=== PATIENT | male | born 1940 | race Caucasian/White ===

== ENCOUNTER 2016-09-29 20:29 | Emergency (ER) | payer OTHER ==
[~2016-09-29] VITALS: Ht 167.6 cm; Wt 82.1 kg
[~2016-09-29 20:29] MED LIST: FENO54TA4 PO; HYDR25TA4 PO; LOVA40TA75 PO; METF-303 PO
[2016-09-29 20:55] VITALS: BP 180/82; PULSE 57; RESP 16; TEMP 98.6; O2SAT 98
[2016-09-29 21:52] LABS: BASOPHILS % (AUTO) 0.4 % (0.0-2.0); EOSINOPHILS # (AUTO) 0.1 K/uL (0.0-0.4); EOSINOPHILS % (AUTO) 2.2 % (0.0-4.0); HEMATOCRIT 38.7 % (36-54); HEMOGLOBIN 13.5 g/dL (14.0-18.0); LYMPHOCYTES # (AUTO) 1.2 K/uL (1.0-5.5); LYMPHOCYTES % (AUTO) 22.7 % (20.5-51.5); MEAN CORPUSCULAR HEMOGLOBIN 31 pg (27-31); MEAN CORPUSCULAR HGB CONC 35 % (32-36); MEAN CORPUSCULAR VOLUME 89 fL (79.0-98.0); MONOCYTES # (AUTO) 0.3 K/uL (0.0-1.0); MONOCYTES % (AUTO) 6.2 % (1.7-9.3); NEUTROPHILS # (AUTO) 3.8 K/uL (1.8-7.7); NEUTROPHILS % (AUTO) 68.5 % (40.0-70.0); PLATELET COUNT (AUTO) 164 K/uL (130-430); RED BLOOD CELL COUNT(AUTO) 4.37 MIL/uL (4.2-6.2); RED CELL DISTRIBUTION WIDTH 13.1 % (9.0-15.0); WHITE BLOOD COUNT (AUTO) 5.4 K/uL (4.8-10.8)
[2016-09-29 21:55] LABS: ANION GAP 6 (5-15); CALCIUM 8.4 mg/dL (8.4-11.0); CHLORIDE 102 mmol/L (98-107); CREATININE 1.55 mg/dL (0.55-1.30); GLUCOSE 282 mg/dL (70-99); POTASSIUM 4.5 mmol/L (3.5-5.1); SODIUM SERUM 134 mmol/L (136-145); UREA NITROGEN, BLOOD 33 mg/dL (8-21)
[2016-09-29 21:56] LABS: PROTHROMBIN TIME 11.2 SECS (9.5-12.5)
[2016-09-29 22:00] LABS: ALANINE AMINOTRANSFERASE 24 U/L (12-78); ALBUMIN 3.5 g/dL (3.4-4.8); ASPARTATE AMINOTRANSFERASE 15 U/L (10-37); TOTAL BILIRUBIN 0.3 mg/dL (0.0-1.0); TOTAL PROTEIN, SERUM 7.2 g/dL (6.4-8.3)
[2016-09-30 00:05] VITALS: BP 168/72; PULSE 49; RESP 17; TEMP 97.8; O2SAT 99
== END 2016-09-30 00:05 | disposition home or self-care (01) ==
LOC: SED 20:29
DX: M79.642 Pain in left hand (principal); M79.1 Myalgia; I95.9 Hypotension, unspecified; E11.9 Type 2 diabetes mellitus without complications; I10 Essential (primary) hypertension; Z95.1 Presence of aortocoronary bypass graft
CPT/HCPCS: 36415; 71010; 80053; 83880; 84484; 85025; 85610-TC; 85730-TC; 93005; 99285

== ENCOUNTER 2017-01-23 23:14 | Inpatient (IN) | payer OTHER ==
[~2017-01-23] VITALS: Ht 170.2 cm; Wt 81.6 kg
[2017-01-23 23:14] VITALS: BP_SYST 171
[2017-01-23] MEDS ORDERED: MORPHINE 2 MG/ML INJ. SYRINGE IVP ONE (23:30)
[2017-01-23] MEDS ORDERED: ONDANSETRON HCL 4 MG/2 ML VIAL IVP ONE ×2 (23:30→23:45)
[2017-01-23] MEDS ORDERED: NACL 0.9% 1,000 ML IV ONE ×2 (23:45)
[2017-01-23] MEDS ORDERED: METOCLOPRAMIDE HCL 10 MG/2 ML VIAL IVP ONE (23:45)
[2017-01-23 23:54] LABS: BASOPHILS % (AUTO) 0.3 % (0.0-2.0); EOSINOPHILS # (AUTO) 0.1 K/uL (0.0-0.4); EOSINOPHILS % (AUTO) 0.9 % (0.0-4.0); HEMOGLOBIN 13.8 g/dL (14.0-18.0); LYMPHOCYTES # (AUTO) 2.3 K/uL (1.0-5.5); LYMPHOCYTES % (AUTO) 28.6 % (20.5-51.5); MEAN CORPUSCULAR HEMOGLOBIN 29 pg (27-31); MEAN CORPUSCULAR HGB CONC 33 % (32-36); MEAN CORPUSCULAR VOLUME 89 fL (79.0-98.0); MONOCYTES # (AUTO) 0.4 K/uL (0.0-1.0); MONOCYTES % (AUTO) 5.5 % (1.7-9.3); NEUTROPHILS # (AUTO) 5.4 K/uL (1.8-7.7); NEUTROPHILS % (AUTO) 64.7 % (40.0-70.0); PLATELET COUNT (AUTO) 161 K/uL (130-430); RED BLOOD CELL COUNT(AUTO) 4.71 MIL/uL (4.2-6.2); RED CELL DISTRIBUTION WIDTH 12.7 % (9.0-15.0); WHITE BLOOD COUNT (AUTO) 8.2 K/uL (4.8-10.8)
[2017-01-24] VITALS (7 sets, daily range): BP systolic 126–164
[2017-01-24 00:01] LABS: ANION GAP 8 (5-15); CALCIUM 8.4 mg/dL (8.4-11.0); CHLORIDE 105 mmol/L (98-107); GLUCOSE 260 mg/dL (70-99); POTASSIUM 3.4 mmol/L (3.5-5.1); SODIUM SERUM 138 mmol/L (136-145); UREA NITROGEN, BLOOD 23 mg/dL (8-21)
[2017-01-24 00:05] LABS: ALANINE AMINOTRANSFERASE 26 U/L (12-78); ALBUMIN 3.9 g/dL (3.4-4.8); ASPARTATE AMINOTRANSFERASE 28 U/L (10-37); LIPASE 207 U/L (73-393); TOTAL BILIRUBIN 0.4 mg/dL (0.0-1.0); TOTAL PROTEIN, SERUM 7.4 g/dL (6.4-8.3)
[2017-01-24] MEDS ORDERED: NACL 0.9% 1,500 ML IV ONE (00:45)
[2017-01-24] MEDS ORDERED: GLIP5TAB13 PO (00:59)
[2017-01-24] MEDS ORDERED: METF-510 PO (01:00)
[2017-01-24] MEDS ORDERED: LIP80 PO (01:00)
[2017-01-24] MEDS ORDERED: SILD20TA2 PO (01:02)
[2017-01-24] MEDS ORDERED: LISI-219 PO (01:03)
[2017-01-24 01:26] LABS: BILIRUBIN,URINE NEGATIVE (NEGATIVE); BLOOD, URINE 1+ (NEGATIVE); CLARITY/URINE CLEAR (CLEAR); COLOR,URINE YELLOW (YELLOW); GLUCOSE,URINE 3+ (NEGATIVE); KETONES,URINE NEGATIVE (NEGATIVE); LEUKOCYTE ESTERASE ,URINE NEGATIVE (NEGATIVE); NITRITE, URINE NEGATIVE (NEGATIVE); PH,URINE 6.5 (5.0-8.0); PROTEIN URINE 2+ (NEGATIVE)
[2017-01-24 01:36] LABS: BACTERIA,URINE FEW /HPF (None Seen); MUCUS,URINE None Seen /LPF (None Seen); WBC,URINE 0-3 /HPF (0-3)
[2017-01-24] MEDS ORDERED: cloNIDine HCL 0.1 MG TABLET PO ONE (02:15)
[2017-01-24] MEDS ORDERED: LEVOFLOXACIN 500 MG/D5W 100 ML IV ONE ×2 (02:45→03:32)
[2017-01-24] MEDS ORDERED: MORPHINE 2 MG/ML INJ. SYRINGE IVP PRN (02:45)
[2017-01-24] MEDS ORDERED: PROCHLORPERAZINE EDISYLATE 10 MG/2 ML VIAL IVP ONE (02:45)
[2017-01-24] MEDS: D5NS 1,000 ML IV SCH ×2 (03:26→16:20)
[2017-01-24] MEDS ORDERED: metroNIDAZOLE 500 mg/NS 100 ML IV ONE (03:32)
[2017-01-24] MEDS: metroNIDAZOLE 500 mg/NS 100 ML IV SCH ×3 (05:03→22:20)
[2017-01-24] MEDS: ONDANSETRON HCL 4 MG/2 ML VIAL IVP PRN ×3 (05:43→18:49)
[2017-01-24] MEDS: INSULIN REGULAR, HUMAN 100 UNITS/ML, 10 ML VIAL (novoLIN R) SUBCUT PRN ×4 (05:45→20:59)
[2017-01-24 06:17] LABS: ANION GAP 8 (5-15); CHLORIDE 104 mmol/L (98-107); CREATININE 1.04 mg/dL (0.55-1.30); GLUCOSE 264 mg/dL (70-99); POTASSIUM 3.9 mmol/L (3.5-5.1); SODIUM SERUM 137 mmol/L (136-145); UREA NITROGEN, BLOOD 18 mg/dL (8-21)
[2017-01-24 06:21] LABS: EOSINOPHILS % (AUTO) 0.2 % (0.0-4.0); HEMOGLOBIN 13.3 g/dL (14.0-18.0); LYMPHOCYTES # (AUTO) 0.5 K/uL (1.0-5.5); LYMPHOCYTES % (AUTO) 5.9 % (20.5-51.5); MEAN CORPUSCULAR HEMOGLOBIN 30 pg (27-31); MEAN CORPUSCULAR HGB CONC 33 % (32-36); MEAN CORPUSCULAR VOLUME 91 fL (79.0-98.0); MONOCYTES # (AUTO) 0.2 K/uL (0.0-1.0); MONOCYTES % (AUTO) 2.1 % (1.7-9.3); NEUTROPHILS # (AUTO) 7.1 K/uL (1.8-7.7); NEUTROPHILS % (AUTO) 91.8 % (40.0-70.0); PLATELET COUNT (AUTO) 141 K/uL (130-430); RED BLOOD CELL COUNT(AUTO) 4.39 MIL/uL (4.2-6.2); RED CELL DISTRIBUTION WIDTH 12.4 % (9.0-15.0); WHITE BLOOD COUNT (AUTO) 7.8 K/uL (4.8-10.8)
[2017-01-24] MEDS: ENOXAPARIN SODIUM 60 MG/0.6 ML SYRINGE SUBCUT SCH (09:48)
[2017-01-24] MEDS: METOPROLOL TARTRATE 25 MG TABLET PO SCH (09:48)
[2017-01-24] MEDS: ASPIRIN 81 MG TAB.CHEW PO SCH (09:48)
[2017-01-24] MEDS: PANTOPRAZOLE SODIUM 40 MG/VIAL (PROTONIX) IVP SCH (09:49)
[2017-01-24] MEDS: LEVOFLOXACIN 500 MG/D5W 100 ML IV SCH (20:51)
[2017-01-25] MEDS: LORazepam 2 MG/ML VIAL IVP PRN ×2 (00:46→08:15)
[2017-01-25] MEDS: D5NS 1,000 ML IV SCH ×3 (04:42→18:39)
[2017-01-25 04:57] VITALS: BP_SYST 157
[2017-01-25] MEDS: metroNIDAZOLE 500 mg/NS 100 ML IV SCH ×3 (05:02→22:49)
[2017-01-25] MEDS: INSULIN REGULAR, HUMAN 100 UNITS/ML, 10 ML VIAL (novoLIN R) SUBCUT PRN ×3 (06:22→21:46)
[2017-01-25] MEDS: ENOXAPARIN SODIUM 60 MG/0.6 ML SYRINGE SUBCUT SCH (08:15)
[2017-01-25] MEDS: PANTOPRAZOLE SODIUM 40 MG/VIAL (PROTONIX) IVP SCH (08:15)
[2017-01-25] MEDS: ASPIRIN 81 MG TAB.CHEW PO SCH (08:18)
[2017-01-25] MEDS: METOPROLOL TARTRATE 25 MG TABLET PO SCH (08:18)
[2017-01-25 08:22] VITALS: BP_SYST 151
[2017-01-25 11:48] VITALS: BP_SYST 140
[2017-01-25] MEDS ORDERED: BISACODYL 5 MG TABLET.DR (DULCOLAX) PO ONE (17:00)
[2017-01-25 17:50] VITALS: BP_SYST 138
[2017-01-25] MEDS ORDERED: GOLYTELY / COLYTE SOLUTION 4 LITERS PO ONE (18:00)
[2017-01-25 20:00] VITALS: BP_SYST 148
[2017-01-25] MEDS: LEVOFLOXACIN 500 MG/D5W 100 ML IV SCH (21:44)
[2017-01-26 00:36] VITALS: BP_SYST 156
[2017-01-26 04:47] VITALS: BP_SYST 177
[2017-01-26] MEDS: D5NS 1,000 ML IV SCH (06:11)
[2017-01-26] MEDS: metroNIDAZOLE 500 mg/NS 100 ML IV SCH ×3 (06:11→22:20)
[2017-01-26 06:26] LABS: INR 1.1 (0.80-1.20); PROTHROMBIN TIME 11.9 SECS (9.5-12.5)
[2017-01-26] MEDS: INSULIN REGULAR, HUMAN 100 UNITS/ML, 10 ML VIAL (novoLIN R) SUBCUT PRN ×3 (06:42→22:18)
[2017-01-26 07:59] VITALS: BP_SYST 167
[2017-01-26] MEDS ORDERED: amLODIPine BESYLATE 5 MG TABLET PO ONE (08:00)
[2017-01-26] MEDS: ASPIRIN 81 MG TAB.CHEW PO SCH (09:00)
[2017-01-26] MEDS: ENOXAPARIN SODIUM 60 MG/0.6 ML SYRINGE SUBCUT SCH (09:36)
[2017-01-26] MEDS: METOPROLOL TARTRATE 25 MG TABLET PO SCH (09:38)
[2017-01-26] MEDS: PANTOPRAZOLE SODIUM 40 MG/VIAL (PROTONIX) IVP SCH (09:38)
[2017-01-26 11:57] VITALS: BP_SYST 147
[2017-01-26] MEDS ORDERED: MEPERIDINE HCL/PF 50 MG/ML AMP ONE (16:26)
[2017-01-26] MEDS ORDERED: MIDAZOLAM HCL 5 MG/5 ML VIAL ONE (16:26)
[2017-01-26] MEDS ORDERED: fentaNYL CITRATE/PF 100 MCG/2 ML AMP ONE (16:43)
[2017-01-26 18:00] VITALS: BP_SYST 124
[2017-01-26 20:00] VITALS: BP_SYST 148
[2017-01-26] MEDS: LEVOFLOXACIN 500 MG/D5W 100 ML IV SCH (22:12)
[2017-01-27] VITALS (12 sets, daily range): BP systolic 139–174
[2017-01-27] MEDS: metroNIDAZOLE 500 mg/NS 100 ML IV SCH ×3 (06:07→22:23)
[2017-01-27] MEDS: cloNIDine HCL 0.1 MG TABLET PO PRN ×2 (06:08→18:48)
[2017-01-27] MEDS: INSULIN REGULAR, HUMAN 100 UNITS/ML, 10 ML VIAL (novoLIN R) SUBCUT PRN ×3 (06:15→18:51)
[2017-01-27] MEDS: ENOXAPARIN SODIUM 60 MG/0.6 ML SYRINGE SUBCUT SCH (10:12)
[2017-01-27] MEDS: PANTOPRAZOLE SODIUM 40 MG/VIAL (PROTONIX) IVP SCH (10:12)
[2017-01-27] MEDS: METOPROLOL TARTRATE 25 MG TABLET PO SCH (10:13)
[2017-01-27] MEDS: ASPIRIN 81 MG TAB.CHEW PO SCH (10:13)
[2017-01-27] MEDS: D5NS 1,000 ML IV SCH ×2 (10:21→17:30)
[2017-01-27] MEDS: LEVOFLOXACIN 500 MG/D5W 100 ML IV SCH (22:23)
[2017-01-28] VITALS (24 sets, daily range): BP systolic 128–178
[2017-01-28] MEDS: cloNIDine HCL 0.1 MG TABLET PO PRN ×2 (05:07→17:28)
[2017-01-28] MEDS: metroNIDAZOLE 500 mg/NS 100 ML IV SCH ×3 (06:13→22:55)
[2017-01-28] MEDS: PANTOPRAZOLE SODIUM 40 MG/VIAL (PROTONIX) IVP SCH (11:48)
[2017-01-28] MEDS: INSULIN REGULAR, HUMAN 100 UNITS/ML, 10 ML VIAL (novoLIN R) SUBCUT PRN ×3 (12:03→21:34)
[2017-01-28] MEDS: D5NS 1,000 ML IV SCH (15:44)
[2017-01-28] MEDS ORDERED: cloNIDine HCL 0.1 MG TABLET PO SCH (21:00)
[2017-01-28] MEDS ORDERED: METOPROLOL TARTRATE 25 MG TABLET PO SCH (21:00)
[2017-01-28] MEDS: LEVOFLOXACIN 500 MG/D5W 100 ML IV SCH (21:29)
[2017-01-29] VITALS (16 sets, daily range): BP systolic 135–177
[2017-01-29] MEDS: cloNIDine HCL 0.1 MG TABLET PO PRN (04:03)
[2017-01-29] MEDS: metroNIDAZOLE 500 mg/NS 100 ML IV SCH ×3 (06:09→21:02)
[2017-01-29] MEDS: INSULIN REGULAR, HUMAN 100 UNITS/ML, 10 ML VIAL (novoLIN R) SUBCUT PRN ×3 (06:18→20:58)
[2017-01-29 06:29] LABS: BASOPHILS % (AUTO) 0.3 % (0.0-2.0); EOSINOPHILS # (AUTO) 0.1 K/uL (0.0-0.4); HEMATOCRIT 39.2 % (36-54); HEMOGLOBIN 13.1 g/dL (14.0-18.0); LYMPHOCYTES # (AUTO) 0.9 K/uL (1.0-5.5); LYMPHOCYTES % (AUTO) 21.5 % (20.5-51.5); MEAN CORPUSCULAR HEMOGLOBIN 31 pg (27-31); MEAN CORPUSCULAR HGB CONC 34 % (32-36); MEAN CORPUSCULAR VOLUME 92 fL (79.0-98.0); MONOCYTES # (AUTO) 0.4 K/uL (0.0-1.0); MONOCYTES % (AUTO) 10.1 % (1.7-9.3); NEUTROPHILS # (AUTO) 2.8 K/uL (1.8-7.7); NEUTROPHILS % (AUTO) 65.1 % (40.0-70.0); PLATELET COUNT (AUTO) 144 K/uL (130-430); RED BLOOD CELL COUNT(AUTO) 4.28 MIL/uL (4.2-6.2); RED CELL DISTRIBUTION WIDTH 12.4 % (9.0-15.0); WHITE BLOOD COUNT (AUTO) 4.2 K/uL (4.8-10.8)
[2017-01-29 08:32] LABS: ALANINE AMINOTRANSFERASE 40 U/L (12-78); ALBUMIN 2.4 g/dL (3.4-4.8); ANION GAP 5 (5-15); ASPARTATE AMINOTRANSFERASE 39 U/L (10-37); CALCIUM 8.1 mg/dL (8.4-11.0); CHLORIDE 105 mmol/L (98-107); CREATININE 1.19 mg/dL (0.55-1.30); GLUCOSE 200 mg/dL (70-99); SODIUM SERUM 138 mmol/L (136-145); TOTAL BILIRUBIN 0.4 mg/dL (0.0-1.0); TOTAL PROTEIN, SERUM 5.5 g/dL (6.4-8.3); UREA NITROGEN, BLOOD 20 mg/dL (8-21)
[2017-01-29] MEDS ORDERED: LISINOPRIL 20 MG TABLET PO ONE (09:30)
[2017-01-29] MEDS: PANTOPRAZOLE SODIUM 40 MG/VIAL (PROTONIX) IVP SCH (09:51)
[2017-01-29] MEDS ORDERED: HYDROCHLOROTHIAZIDE 12.5 MG CAPSULE (HCTZ) PO ONE (11:15)
[2017-01-29] MEDS: D5NS 1,000 ML IV SCH (14:13)
[2017-01-29] MEDS: LEVOFLOXACIN 500 MG/D5W 100 ML IV SCH (20:02)
[2017-01-29] MEDS: hydrALAZINE HCL 20 MG/ML VIAL IVP PRN (21:00)
[2017-01-30] VITALS (9 sets, daily range): BP systolic 105–170
[2017-01-30] MEDS ORDERED: POTASSIUM CHLORIDE 20 MEQ TAB.PRT.SR PO ONE ×2 (00:30→23:30)
[2017-01-30] MEDS: hydrALAZINE HCL 20 MG/ML VIAL IVP PRN (04:18)
[2017-01-30] MEDS: metroNIDAZOLE 500 mg/NS 100 ML IV SCH ×3 (05:57→21:48)
[2017-01-30] MEDS: INSULIN REGULAR, HUMAN 100 UNITS/ML, 10 ML VIAL (novoLIN R) SUBCUT PRN ×4 (06:01→20:16)
[2017-01-30 07:02] LABS: BASOPHILS % (AUTO) 0.2 % (0.0-2.0); EOSINOPHILS # (AUTO) 0.1 K/uL (0.0-0.4); EOSINOPHILS % (AUTO) 1.8 % (0.0-4.0); HEMATOCRIT 43.8 % (36-54); HEMOGLOBIN 14.7 g/dL (14.0-18.0); LYMPHOCYTES # (AUTO) 0.9 K/uL (1.0-5.5); LYMPHOCYTES % (AUTO) 17.3 % (20.5-51.5); MEAN CORPUSCULAR HEMOGLOBIN 30 pg (27-31); MEAN CORPUSCULAR HGB CONC 34 % (32-36); MEAN CORPUSCULAR VOLUME 88 fL (79.0-98.0); MONOCYTES # (AUTO) 0.4 K/uL (0.0-1.0); MONOCYTES % (AUTO) 8.3 % (1.7-9.3); NEUTROPHILS # (AUTO) 3.9 K/uL (1.8-7.7); NEUTROPHILS % (AUTO) 72.4 % (40.0-70.0); PLATELET COUNT (AUTO) 173 K/uL (130-430); RED BLOOD CELL COUNT(AUTO) 4.96 MIL/uL (4.2-6.2); RED CELL DISTRIBUTION WIDTH 12.4 % (9.0-15.0)
[2017-01-30 07:07] LABS: ALANINE AMINOTRANSFERASE 57 U/L (12-78); ALBUMIN 2.6 g/dL (3.4-4.8); ANION GAP 8 (5-15); ASPARTATE AMINOTRANSFERASE 61 U/L (10-37); CALCIUM 8.3 mg/dL (8.4-11.0); CHLORIDE 102 mmol/L (98-107); CREATININE 1.05 mg/dL (0.55-1.30); GLUCOSE 169 mg/dL (70-99); POTASSIUM 3.1 mmol/L (3.5-5.1); SODIUM SERUM 135 mmol/L (136-145); TOTAL BILIRUBIN 0.6 mg/dL (0.0-1.0); UREA NITROGEN, BLOOD 17 mg/dL (8-21)
[2017-01-30 07:20] LABS: WHITE BLOOD COUNT (AUTO) 5.3 K/uL (4.8-10.8)
[2017-01-30] MEDS: PANTOPRAZOLE SODIUM 40 MG/VIAL (PROTONIX) IVP SCH (09:08)
[2017-01-30] MEDS: HYDROCHLOROTHIAZIDE 12.5 MG CAPSULE (HCTZ) PO SCH (09:09)
[2017-01-30] MEDS ORDERED: PREDEYE1% LEFT EYE (09:31)
[2017-01-30] MEDS: D5NS 1,000 ML IV SCH (14:36)
[2017-01-30] MEDS: LEVOFLOXACIN 500 MG/D5W 100 ML IV SCH (20:04)
[2017-01-31 04:13] VITALS: BP_SYST 170
[2017-01-31] MEDS: hydrALAZINE HCL 20 MG/ML VIAL IVP PRN (04:35)
[2017-01-31 05:00] VITALS: BP_SYST 149
[2017-01-31] MEDS: metroNIDAZOLE 500 mg/NS 100 ML IV SCH ×2 (05:23→14:01)
[2017-01-31] MEDS: INSULIN REGULAR, HUMAN 100 UNITS/ML, 10 ML VIAL (novoLIN R) SUBCUT PRN ×2 (05:58→12:42)
[2017-01-31 08:00] VITALS: BP_SYST 139
[2017-01-31] MEDS: HYDROCHLOROTHIAZIDE 12.5 MG CAPSULE (HCTZ) PO SCH (09:07)
[2017-01-31] MEDS: PANTOPRAZOLE SODIUM 40 MG/VIAL (PROTONIX) IVP SCH (09:07)
[2017-01-31 12:31] VITALS: BP_SYST 139
[2017-01-31 15:14] VITALS: BP_SYST 139
[2017-01-31 16:28] VITALS: BP_SYST 139
== END 2017-01-31 16:14 | DRG 280 ==
LOC: SED 23:14 → STU 01-24 02:39 → SIC 01-27 15:50 → STU 01-29 10:58
PROC: 0DJD8ZZ Inspection of Lower Intestinal Tract, Via Natural or Artificial Opening Endoscopic (ICD-10-PCS; principal; 2017-01-26 17:00)
DX: I21.4 Non-ST elevation (NSTEMI) myocardial infarction (principal); I61.9 Nontraumatic intracerebral hemorrhage, unspecified; I10 Essential (primary) hypertension; I25.10 Atherosclerotic heart disease of native coronary artery without angina pectoris; E78.00 Pure hypercholesterolemia, unspecified; K52.9 Noninfective gastroenteritis and colitis, unspecified; K80.20 Calculus of gallbladder without cholecystitis without obstruction; H53.462 Homonymous bilateral field defects, left side; K64.9 Unspecified hemorrhoids; I24.8 Other forms of acute ischemic heart disease; E78.5 Hyperlipidemia, unspecified; E86.0 Dehydration; R32 Unspecified urinary incontinence; E11.65 Type 2 diabetes mellitus with hyperglycemia; Z79.899 Other long term (current) drug therapy; I25.2 Old myocardial infarction; Z95.1 Presence of aortocoronary bypass graft; Z86.73 Personal history of transient ischemic attack (TIA), and cerebral infarction without residual deficits; Z79.84 Long term (current) use of oral hypoglycemic drugs
CPT/HCPCS: 36415; 45378; 70450-TC; 71010; 76700-TC; 78226; 80048; 80053; 81000-TC; 82272; 82962; 83605; 83690-TC; 84484; 85025; 85610-TC; 85730-TC; 87040-TC; 87081; 87086; 87230-TC; 89055; 93005; 93306; 96361; 96374; 96375; 97116-GP; 97530-GP; 99285; A9537; C9113; J0360; J0780; J1650; J1815; J1956; J2060; J2175; J2250; J2270; J2405; J2765; J3010; J3490; J7030; J7040; J7042; J7050; J7060